=== PATIENT | male | born 1955 | race African-American/Black ===

== ENCOUNTER 2017-10-20 09:01 | Day surgery (SDC) | payer MEDICARE ==
[~2017-10-20] VITALS: Ht 180.3 cm; Wt 68.6 kg
[~2017-10-20 09:01] MED LIST: DILAUDID 4MG TAB4 MG PO; FLEXERIL5 MG PO; LORTAB 7.5/5001 TAB PO; NO HOME MEDICATIONS; PERCOCET 500 MG1 TAB PO
[2017-10-20] MEDS ORDERED: CARDIZEM120 MG PO (10:03)
[2017-10-20] MEDS ORDERED: METHADONE H10 MG/TAB PO (10:04)
[2017-10-20] MEDS ORDERED: DILAUDID 4MG TAB4 MG PO (10:04)
[2017-10-20] MEDS ORDERED: CEPHALEXIN500 M1 PO (10:05)
[2017-10-20] MEDS ORDERED: PERCOCET 325 MG1 TAB PO (10:07)
[2017-10-20] MEDS ORDERED: LYRICA 150MG C150 MG PO (10:07)
[2017-10-20] MEDS ORDERED: PRINZIDE 12.5 M1 TAB PO (10:08)
[2017-10-20] MEDS ORDERED: AMITRIPTYLINE H25 M1 PO (10:08)
[2017-10-20] MEDS ORDERED: PRIL40 PO (10:09)
[2017-10-20] MEDS ORDERED: SENNA8.6 MG PO (10:10)
[2017-10-20 10:39] VITALS: BP 126/91; PULSE 74; TEMP 97.8
[2017-10-20 12:15] VITALS: BP 129/84; PULSE 64; TEMP 97.6
[2017-10-20 12:30] VITALS: BP 124/87; PULSE 66
[2017-10-20 13:08] VITALS: BP 133/90; PULSE 60
== END 2017-10-20 12:45 | disposition home or self-care (01) ==
LOC: SDCO 09:01
DX: K29.30 Chronic superficial gastritis without bleeding (principal); K29.80 Duodenitis without bleeding; K86.2 Cyst of pancreas; R63.0 Anorexia; B18.2 Chronic viral hepatitis C; K21.9 Gastro-esophageal reflux disease without esophagitis; R63.4 Abnormal weight loss; Z68.20 Body mass index [BMI] 20.0-20.9, adult; R74.8 Abnormal levels of other serum enzymes; K59.09 Other constipation; I10 Essential (primary) hypertension; K74.69 Other cirrhosis of liver; G89.29 Other chronic pain; F10.10 Alcohol abuse, uncomplicated
CPT/HCPCS: J7030